=== PATIENT | male | born 1980 | race Caucasian/White ===

== ENCOUNTER 2020-04-04 13:01 | Emergency (ER) | payer OTHER ==
[~2020-04-04] VITALS: Ht 175.3 cm; Wt 81.5 kg
[2020-04-04 13:36] LABS: MICROSCOPIC NOT IND
[2020-04-04 14:00] LABS: BASOPHILS % (AUTO) 1 % (0-1); EOSINOPHILS % (AUTO) 1 % (1-7); LYMPHOCYTES % (AUTO) 29 % (22-44); MEAN CORPUSCULAR HEMOGLOBIN 29.1 pg (27.5-34.5); MEAN CORPUSCULAR HGB CONC 32.7 g/dL (33.2-36.2); MEAN PLATELET VOLUME 8.3 fL (7.4-10.4); MONOCYTES % (AUTO) 7 % (2-9); NEUTROPHILS % (AUTO) 63 % (42-75); PLATELET COUNT 271 x10^3/uL (130-400); RED BLOOD COUNT 5.27 x10^6/uL (4.38-5.82); RED CELL DISTRIBUTION WIDTH 13.6 % (9.4-14.8)
[2020-04-04 14:02] LABS: MD NO
[2020-04-04 14:11] LABS: ALBUMIN 3.7 g/dL (3.4-5.0); ANION GAP 6 mmol/L (5-15); CALCIUM 8.9 mg/dL (8.5-10.1); CHLORIDE 109 mmol/L (98-107)
[2020-04-04 14:15] LABS: ALANINE AMINOTRANSFERASE 20 U/L (12-78); ALKALINE PHOSPHATASE 95 U/L (45-117); BILIRUBIN,TOTAL 0.8 mg/dL (0.2-1.0); CREATININE 1.05 mg/dL (0.7-1.3); TOTAL PROTEIN 7.4 g/dL (6.4-8.2)
--- NOTE | 2020-04-04 15:06 | NUR ---
TO ROOM FROM LOBBY. NAD.
--- NOTE | 2020-04-04 15:26 | NUR ---
PT AMBULATORY TO ROOM 24 W/ C/O RLQ ABD PAIN X 3 DAYS. PT STATES IT HAS BEEN ON/OFF FOR A WHILE NOW BUT MORE CONSTANT OF RECENTLY. PT ALSO C/O MID LOWER BACK PAIN X 3 DAYS. DENIES LIFTING ANYTHING HEAVY/PUSHING/PULLING. STATES IT STARETD OUT OF NOWHERE. PT DENIES BILAT FLANK PAIN. PT RESTING ON GURNEY. NADN. VSS. WARM BLANKET PROVIDED.
[2020-04-04] MEDS ORDERED: SODIUM CHLORIDE FLUSH 10ML SYR IVF ONE (15:30)
--- NOTE | 2020-04-04 15:44 | NUR ---
REPORT GIVEN TO DEVIN FISHER.
[2020-04-04] MEDS ORDERED: OMNIPAQUE 350 MG/ML, 100ML BOTTLE ONE (15:45)
--- NOTE | 2020-04-04 16:34 | NUR ---
PT RESTING IN [facility] AT THIS TIME WITH CALL LIGHT WITHIN REACH.
--- NOTE | 2020-04-04 16:42 | NUR ---
PT VSS AND UPDATED IN EMR.
--- NOTE | 2020-04-04 17:13 | NUR ---
PT D/C WITH D/C SUMMARY. ALL QUESTIONS ANSWERED. PIV D/C WITH TIP INTACT. PT VSS AND UPDATED IN EMR. PT AMBULATES TO REGISTRATION DESK WITH STEADY GAIT FOR D/C HOME AND DENIES ANY OTHER NEEDS PERTAINING TO THIS VISIT.
[2020-04-04 17:14] VITALS: BP 104/50
== END 2020-04-04 17:21 | disposition home or self-care (01) ==
LOC: ED 15:29
DX: R10.31 Right lower quadrant pain (principal)
CPT/HCPCS: 36415; 74177; 80053; 81003; 83690; 85025; 99285; Q9967